=== PATIENT | female | born 1965 | race Caucasian/White ===

== ENCOUNTER → 2020-12-16 | Outpatient (CLI) | payer OTHER ==
--- NOTE | 2020-12-16 13:31 | XR ---
EXAMINATION TYPE: XR chest 2V DATE OF EXAM: 12/16/2020 COMPARISON: NONE HISTORY: Abnormal outside x-ray right shoulder. TECHNIQUE: Frontal and lateral views of the chest are obtained. FINDINGS: There is background chronic emphysematous and pulmonary fibrotic change with suggestion of 1.7 cm right lower lobe nodule on both projections. The cardiac silhouette size is within normal li mits. The osseous structures are intact. IMPRESSION: Chronic emphysematous and pulmonary fibrotic change without acute pulmonary process. Tiffanie picious 1.7 cm right lower lobe nodule lateral aspect. Advise contrast enhanced chest CT to further e valuate. A Yellow level critical message alert has been initiated for Doroteo Pickett MD via the [employer] Critical Results System on 12/16/2020 1:24 PM. This message alert has been sent to Godfrey Goldman via the preferences provided by the clinician for the receipt of Radiology Critical Findings. Salma [employer] ID [id number].
== END | disposition home or self-care (01) ==
LOC: RADXRMAIN 12:47
PROVIDERS: ATTEND Orthopaedic Surgery
DX: J84.10 Pulmonary fibrosis, unspecified (principal); J43.9 Emphysema, unspecified
CPT/HCPCS: 71046

== ENCOUNTER → 2021-02-01 | Outpatient (CLI) | payer OTHER ==
--- NOTE | 2021-02-01 15:12 | CT ---
EXAMINATION TYPE: CT chest w con DATE OF EXAM: 02/01/2021 COMPARISON: Chest x-ray December 16, 2020 HISTORY: Lung nodule. Abnormal chest x-ray. CT DLP: 219 mGycm. Automated Exposure Control for Dose Reduction was Utilized. TECHNIQUE: CT scan of the thorax is performed following with IV Contrast, patient injected with 100m l mL of Isovue 300. FINDINGS: LUNGS: Background moderate underlying emphysematous change with moderate biapical pleural/parenchymal scarring extending posteriorly is present. Confirmation of densely calcified 1.6 x 1.0 cm peripheral right lower lobe nodule or benign granuloma corresponding to x-ray abnormality axial image 40. There is 7 x 5 mm noncalcified right middle lobe nodule axial image 36 superior to this. Additional smalle r 3 to 4 mm superior right lower lobe nodule axial image 31. MEDIASTINUM: There are prominent but calcified right hilar and subcarinal lymph nodes. No abnormal gr eater than 1 cm noncalcified lymph nodes. No cardiomegaly or pericardial effusion is seen. Bovine type arch which is normal variant. OTHER: Mild multilevel spurring. IMPRESSION: Moderate emphysematous change. Evidence of old granulomatous disease. There is 7 x 5 mm n oncalcified right middle lobe nodule. Follow up advised as per Fleischner Society recommendations. high-risk patients: CT at 6-12 months, t hen CT at 18-24 months
== END | disposition home or self-care (01) ==
LOC: RADCTMAIN 13:55
PROVIDERS: ATTEND Family Medicine
DX: R91.1 Solitary pulmonary nodule (principal); J43.9 Emphysema, unspecified; J84.10 Pulmonary fibrosis, unspecified
CPT/HCPCS: 71260; Q9967

== ENCOUNTER → 2023-01-23 | Outpatient (CLI) | payer OTHER ==
--- NOTE | 2023-01-23 14:20 | NM ---
EXAMINATION TYPE: NM bone scan whole body DATE OF EXAM: 01/23/2023 COMPARISON: Chest CT February 01, 2021 CLINICAL INDICATION: Female, 57 years old with history of E83.52 elevated alkaline phis level; Delayed whole-body scanning was performed following the injection of 22.8 mCi Tc 99m MDP. Images acq uired 3 hours post injection. Whole body images in anterior and posterior projection along with spot images of the thorax abdomen and pelvis are acquired. FINDINGS: Single focus of increased radiotracer uptake left lateral approximate fourth rib. Correlate for acute or subacute fracture injury. No additional areas of abnormal radiotracer uptake to suggest metastatic disease to the bone. No expansile hypermetabolic uptake to suggest Paget's disease. Some excretion is noted. IMPRESSION: As above.
== END | disposition home or self-care (01) ==
LOC: RADNMMAIN 10:16
PROVIDERS: ATTEND Family Medicine
DX: E83.52 Hypercalcemia (principal)
CPT/HCPCS: 78306; A9503